=== PATIENT | female | born 1965 | race Caucasian/White ===

== ENCOUNTER → 2020-12-11 | Outpatient (CLI) | payer OTHER ==
[2020-12-15 02:08] LABS: CHLAMYDIA BY NAA Negative (Negative); GONOCOCCUS BY NAA Negative (Negative); HPV 16 Negative (Negative); HPV 18 Negative (Negative); HPV OTHER HR TYPES Negative (Negative); TRICH VAG BY NAA Negative (Negative)
== END ==
LOC: LAB SHORT 09:30 → LAB 09:30
PROVIDERS: Family Medicine
DX: N93.9 Abnormal uterine and vaginal bleeding, unspecified (principal)
CPT/HCPCS: 87491; 87591; 87624; 87661; G0123

== ENCOUNTER → 2021-01-19 | Outpatient (CLI) | payer OTHER | LOC: LAB 07:30 → LAB SHORT 07:30 | DX: N95.0 Postmenopausal bleeding (principal) | CPT/HCPCS: 88305 ==

== ENCOUNTER 2023-06-07 12:12 | Day surgery (SDC) | payer OTHER ==
[~2023-06-07] VITALS: Ht 170.2 cm; Wt 120.5 kg
[~2023-06-07 12:12] MED LIST: ATEN50 PO; FURO40 PO; HYDCHL25 PO; LOSA50 PO; METF500; POTA10T
[2023-06-07] MEDS ORDERED: VITAMIN D5000 UNIT (12:32)
[2023-06-07] MEDS ORDERED: GLUC500 (12:35)
[2023-06-07 17:57] VITALS: BP 142/93
== END 2023-06-07 17:11 | disposition home or self-care (01) ==
LOC: ORSCSDS 12:12
PROVIDERS: Internal Medicine Gastroenterology
PROC: 0DBP8ZX Excision of Rectum, Via Natural or Artificial Opening Endoscopic, Diagnostic (ICD-10-PCS; principal; 2023-06-07 13:30)
DX: Z12.11 Encounter for screening for malignant neoplasm of colon (principal); K62.1 Rectal polyp; K64.4 Residual hemorrhoidal skin tags; Z86.010 Personal history of colon polyps; I10 Essential (primary) hypertension; E78.5 Hyperlipidemia, unspecified; G47.33 Obstructive sleep apnea (adult) (pediatric); E11.9 Type 2 diabetes mellitus without complications; E66.01 Morbid (severe) obesity due to excess calories; Z68.41 Body mass index [BMI] 40.0-44.9, adult; Z79.899 Other long term (current) drug therapy; Z79.84 Long term (current) use of oral hypoglycemic drugs; Z87.891 Personal history of nicotine dependence
CPT/HCPCS: 82947; 88305; J0461; J2001; J2405; J2704; J7120; Q9968

== ENCOUNTER → 2024-05-01 | Outpatient (CLI) | payer OTHER ==
[~2024-05-01] MED LIST changes: +GLUC500; +VITAMIN D5000 UNIT
[2024-05-14 14:15] LABS: HPV HIGH RISK BY TMA Not Detected; HPV SOURCE Cervical
== END | disposition home or self-care (01) ==
LOC: LAB 17:10 → LAB SHORT 17:10
PROVIDERS: Registered Nurse
DX: Z01.419 Encounter for gynecological examination (general) (routine) without abnormal findings (principal)
CPT/HCPCS: 87624; G0123